=== PATIENT | male | born 1975 | race Two or more races ===

== ENCOUNTER 2017-08-31 11:38 | Emergency (ER) | payer MEDICAID ==
[~2017-08-31] VITALS: Ht 167.6 cm; Wt 113.4 kg
[2017-08-31] MEDS ORDERED: TETANUS-DIPTH-ACEL PERTUSSIS 0.5ML SYRG IM ONE (13:15)
[2017-08-31 13:46] VITALS: BP 128/74
== END 2017-08-31 13:55 | disposition home or self-care (01) ==
LOC: ER 11:38
DX: S61.032A Puncture wound without foreign body of left thumb without damage to nail, initial encounter (principal); W45.8XXA Other foreign body or object entering through skin, initial encounter; Y93.89 Activity, other specified; Y92.89 Other specified places as the place of occurrence of the external cause; Y99.8 Other external cause status
CPT/HCPCS: 90471; 90715

== ENCOUNTER 2023-11-02 20:57 | Inpatient (IN) | payer MEDICAID ==
[~2023-11-02] VITALS: Ht 167.6 cm; Wt 121.0 kg
[2023-11-02 22:19] LABS: Basophils # (auto) 0.1 10 ^3/uL (0-0.2); Basophils % (auto) 0.5 % (0.0-2.0); Eosinophils # (auto) 0.2 10 ^3/uL (0-0.8); Hematocrit 47.9 % (41.0-53.0); Hemoglobin 16.7 g/dL (13.5-17.5); Lymphocytes # (auto) 2.9 10 ^3/uL (0.4-5.4); Mean Corpuscular Hemoglobin 29.3 pg (28.0-32.0); Mean Corpuscular Volume 83.9 fL (80.0-100.0); Monocytes # (auto) 1.4 10 ^3/uL (0-1.3); Monocytes % (auto) 7.9 % (0.0-12.0); Neutrophils # (auto) 12.6 10 ^3/uL (1.6-8.6); Neutrophils % (auto) 73.6 % (37.0-80.0); Red Blood Cells 5.71 10^6/uL (4.5-5.90); Red Cell Distribution Width 13.9 % (11.8-14.3); White Blood Cell 17.2 10^3/uL (4.4-10.8)
[2023-11-02 22:39] LABS: Alanine Aminotransferase 28 U/L (7-40); Albumin 4.3 g/dL (3.2-4.8); Alkaline Phosphatase 87 U/L (46-116); Anion Gap 8 (5-15); Aspartate Aminotransferase 13 U/L (13-40); Bilirubin, Total 0.8 mg/dL (0.2-1.0); Calcium 9.3 mg/dL (8.7-10.4); Carbon Dioxide 23 mmol/L (20-30); Chloride 107 mmol/L (98-107); Glucose 133 mg/dL (74-106); Lipase 42 U/L (12-53); Potassium 3.7 mmol/L (3.5-5.1); Sodium 138 mmol/L (136-145); Total Protein 7.5 g/dL (5.7-8.2)
[2023-11-02 22:54] LABS: BUN/Creatinine Ratio 11.9 (10.0-20.0); Blood Urea Nitrogen 12 mg/dL (9-23)
[2023-11-02 23:03] LABS: Urine Bacteria None Seen /hpf (None Seen)
[2023-11-02 23:14] LABS: Urine Blood Negative /uL (Negative); Urine Clarity Clear (Clear); Urine Color Yellow (Yellow); Urine Mucus FEW (None Seen); Urine Protein, UAD TRACE (Negative); Urine Specific Gravity 1.026 (1.001-1.035); Urine Urobilinogen Normal (Negative); Urine WBC <1 /hpf (0 - 3); Urine pH 6.5 (5.0-9.0)
[2023-11-02] MEDS ORDERED: ceFAZolin 2 GM/D5W50ml 50 ML IV ONE (23:30)
[2023-11-03] MEDS: SODIUM CHLORIDE 0.9% 1,000 ML IV ONE (01:33)
[2023-11-03] MEDS: PANTOPRAZOLE 40 MG/10 ML VIAL INJ IV ONE (01:33)
[2023-11-03] MEDS: ONDANSETRON HCL 4 MG/2 ML VIAL IV ONE ×3 (01:34→04:56)
[2023-11-03] MEDS: MORPHINE SULFATE 4 MG/ML SYR/VIAL IV ONE ×3 (01:39→04:57)
[2023-11-03] MEDS: metroNIDAZOLE 500MG/100ML 100 ML IV ONE (01:40)
[2023-11-03] MEDS: ceFAZolin 1GM/50ML 50 ML IV ONE ×2 (03:56→04:46)
[2023-11-03] MEDS ORDERED: ONDANSETRON HCL 4 MG/2 ML VIAL IV PRN (06:15)
[2023-11-03] MEDS: SODIUM CHLORIDE 0.9% 1,000 ML IV SCH (06:46)
[2023-11-03 07:43] LABS: INR 1.03 (0.9-1.15); Partial Thromboplastin Time 29.9 SEC (24.5-34.5); Prothrombin Time 10.9 sec (9.3-11.8)
[2023-11-03] MEDS: D5W/SOD CHL 0.45%/KCL 20MEQ 1,000 ML IV SCH (09:15)
[2023-11-03] MEDS: cefTRIAXone 1GM/50ML D5W 50 ML IV SCH (09:16)
[2023-11-03 11:08] VITALS: PULSE 66; RESP 20; O2SAT 98
[2023-11-03] MEDS: MORPHINE SULFATE INJ 2 MG/ml SYRG IV PRN (12:25)
[2023-11-03] MEDS: metroNIDAZOLE 500MG/100ML 100 ML IV SCH (14:11)
[2023-11-03 17:12] VITALS: BP 106/64; PULSE 86; RESP 18; TEMP 98; O2SAT 94
[2023-11-03 19:35] VITALS: RESP 18; O2SAT 95
[2023-11-03 20:00] VITALS: PULSE 75; RESP 18; O2SAT 95
[2023-11-03 21:00] VITALS: BP 108/63; PULSE 86; RESP 16; TEMP 98.7; O2SAT 98
[2023-11-04] VITALS (7 sets, daily range): BP systolic 104–118; BP diastolic 39–74; PULSE 73–90; RESP 17–19; TEMP 98.1–99.1; O2SAT 95–98
[2023-11-04 08:52] LABS: Basophils # (auto) 0 10 ^3/uL (0-0.2); Basophils % (auto) 0.4 % (0.0-2.0); Eosinophils # (auto) 0.3 10 ^3/uL (0-0.8); Eosinophils % (auto) 3.2 % (0.0-7.0); Hematocrit 42.8 % (41.0-53.0); Hemoglobin 14.4 g/dL (13.5-17.5); Lymphocytes # (auto) 1.7 10 ^3/uL (0.4-5.4); Lymphocytes % (auto) 18.6 % (10.0-50.0); Mean Corpuscular Hemoglobin 28.8 pg (28.0-32.0); Mean Corpuscular Hgb Conc. 33.6 g/dL (32.0-36.0); Mean Corpuscular Volume 85.7 fL (80.0-100.0); Monocytes % (auto) 10.7 % (0.0-12.0); Neutrophils # (auto) 6.1 10 ^3/uL (1.6-8.6); Neutrophils % (auto) 67.1 % (37.0-80.0); Nucleated Red Blood Cells % 0.1 %; Red Cell Distribution Width 13.7 % (11.8-14.3); White Blood Cell 9.1 10^3/uL (4.4-10.8)
[2023-11-04 09:08] LABS: Alanine Aminotransferase 21 U/L (7-40); Albumin 3.6 g/dL (3.2-4.8); Alkaline Phosphatase 74 U/L (46-116); Anion Gap 1 (5-15); Aspartate Aminotransferase 12 U/L (13-40); BUN/Creatinine Ratio 9.6 (10.0-20.0); Blood Urea Nitrogen 9 mg/dL (9-23); Calcium 8.9 mg/dL (8.7-10.4); Carbon Dioxide 32 mmol/L (20-30); Chloride 107 mmol/L (98-107); Glucose 118 mg/dL (74-106); Potassium 4.3 mmol/L (3.5-5.1); Sodium 140 mmol/L (136-145)
[2023-11-04 09:09] LABS: Bilirubin, Total 0.7 mg/dL (0.2-1.0); Total Protein 6.2 g/dL (5.7-8.2)
[2023-11-05 01:00] VITALS: BP 129/78; PULSE 86; RESP 20; TEMP 98.5; O2SAT 97
== END 2023-11-05 01:05 | disposition left against medical advice (07) ==
LOC: ER 20:57 → OVERFLOW 11-03 06:13 → EAST 11-03 17:13
PROVIDERS: ADMIT Nurse Practitioner; ATTEND Family Medicine
DX: K80.00 Calculus of gallbladder with acute cholecystitis without obstruction (principal); E66.01 Morbid (severe) obesity due to excess calories; Z53.29 Procedure and treatment not carried out because of patient's decision for other reasons; E86.0 Dehydration; Z91.199 Patient's noncompliance with other medical treatment and regimen due to unspecified reason; Z68.41 Body mass index [BMI] 40.0-44.9, adult; Z79.899 Other long term (current) drug therapy
CPT/HCPCS: 36415; 71045; 76705; 80053; 81001; 83605; 83690; 85025; 85610; 85730; 86850; 86900; 86901; G0378; J2405; J2470; J3490